=== PATIENT | female | born 1985 | race Caucasian/White ===

== ENCOUNTER 2018-11-19 17:58 | Emergency (ER) | payer OTHER ==
[~2018-11-19] VITALS: Ht 170.2 cm; Wt 125.6 kg
[2018-11-19 18:02] VITALS: BP 145/91
[2018-11-19] MEDS ORDERED: ONDANSETRON ODT 4 MG PO ONE (18:30)
[2018-11-19 18:35] LABS: ALBUMIN 3.5 g/dL (3.4-5.0); ANION GAP 5 mmol/L (5-15); CALCIUM 8.9 mg/dL (8.5-10.1); CHLORIDE 112 mmol/L (98-107)
[2018-11-19 19:12] LABS: BASOPHILS # (AUTO) 0.03 x10^3/uL (0-0.1); BASOPHILS % (AUTO) 0 % (0-1); EOSINOPHILS # (AUTO) 0.26 x10^3/uL (0-0.4); EOSINOPHILS % (AUTO) 3 % (1-7); LYMPHOCYTES % (AUTO) 27 % (22-44); MD NO; MEAN CORPUSCULAR HEMOGLOBIN 27.2 pg (27.0-34.8); MEAN CORPUSCULAR HGB CONC 33.4 g/dL (32.4-35.8); MEAN CORPUSCULAR VOLUME 81.6 fL (80-100); MEAN PLATELET VOLUME 11.1 fL (7.4-10.4); MONOCYTES % (AUTO) 8 % (2-9); NEUTROPHILS # (AUTO) 6.17 x10^3/uL (1.8-6.8); NEUTROPHILS % (AUTO) 62 % (42-75); PLATELET COUNT 250 x10^3/uL (130-400); RED BLOOD COUNT 5.26 x10^6/uL (3.82-5.3); RED CELL DISTRIBUTION WIDTH 14.5 % (9.6-15.2)
[2018-11-19 19:34] LABS: MICROSCOPIC INDICATED
[2018-11-19 19:36] LABS: CULTURE INDICATED? NO
[2018-11-19] MEDS ORDERED: ONDANSETRON ODT 4 MG ONE (19:47)
== END 2018-11-19 20:50 | disposition home or self-care (01) ==
LOC: ED 20:00
DX: R42 Dizziness and giddiness (principal); E86.0 Dehydration; R11.2 Nausea with vomiting, unspecified; M54.5 Low back pain
CPT/HCPCS: 36415; 80048; 81001; 82040; 84703; 85025; 99283; Q0162

== ENCOUNTER 2018-12-16 22:00 | Emergency (ER) | payer OTHER, MEDICAID ==
[~2018-12-16] VITALS: Ht 167.6 cm; Wt 125.0 kg
--- NOTE | 2018-12-16 22:27 | NUR ---
PT HERE FOR BILATERAL FLANK PAIN X 2 DAYS.
[2018-12-16 22:40] LABS: MICROSCOPIC NOT IND
[2018-12-16 22:45] LABS: CULTURE INDICATED? NO; HCG UR SG 1.032 (1.003-1.030)
[2018-12-16 22:57] VITALS: BP 151/86
[2018-12-16] MEDS ORDERED: HYDROcodone/APAP 5/325 TABLET ONE (22:58)
[2018-12-16] MEDS ORDERED: CYCLOBENZAPRINE 10 MG TABLET ONE (22:58)
[2018-12-16] MEDS ORDERED: IBUPROFEN 200 MG TABLET ONE (22:58)
[2018-12-16] MEDS ORDERED: CYCLOBENZAPRINE 10 MG TABLET PO ONE (23:00)
[2018-12-16] MEDS ORDERED: IBUPROFEN 800 MG TABLET PO ONE (23:00)
[2018-12-16] MEDS ORDERED: HYDROcodone/APAP 5/325 TABLET PO ONE (23:00)
--- NOTE | 2018-12-16 23:00 | NUR ---
PT MEDICATED PER EMAR.
== END 2018-12-17 00:18 | disposition home or self-care (01) ==
LOC: ED 22:42
DX: S39.012A Strain of muscle, fascia and tendon of lower back, initial encounter (principal); X58.XXXA Exposure to other specified factors, initial encounter; Y93.89 Activity, other specified; Y92.89 Other specified places as the place of occurrence of the external cause; Y99.8 Other external cause status
CPT/HCPCS: 72110; 81003; 81025; 99284

== ENCOUNTER 2019-05-20 16:54 | Emergency (ER) | payer MEDICAID, OTHER ==
[~2019-05-20] VITALS: Ht 170.2 cm; Wt 117.0 kg
--- NOTE | 2019-05-20 17:33 | NUR ---
THIS IS A 33YO FEMALE THAT COMES IN FOR VB LASTING 3WEEKS PT REPORTS NOT NEEDING PADS FOR THE BLEEDING JUST PRESENT WHEN SHE WIPES, PT DENIES NEW MEDICATION CHANGES REPORTS USING DEPO FOR LAST 7MONTHS. PT CONNECTED TO MONITORING. VSS. CALL LIGHT WITHIN REACH. UMER
[2019-05-20 18:26] LABS: BASOPHILS # (AUTO) 0.04 x10^3/uL (0-0.1); BASOPHILS % (AUTO) 0 % (0-1); EOSINOPHILS # (AUTO) 0.14 x10^3/uL (0-0.4); EOSINOPHILS % (AUTO) 1 % (1-7); LYMPHOCYTES # (AUTO) 2.52 x10^3/uL (1-3.4); LYMPHOCYTES % (AUTO) 24 % (22-44); MD NO; MEAN CORPUSCULAR HEMOGLOBIN 27.8 pg (27.0-34.8); MEAN CORPUSCULAR HGB CONC 32.9 g/dL (32.4-35.8); MEAN CORPUSCULAR VOLUME 84.4 fL (80-100); MONOCYTES # (AUTO) 0.73 x10^3/uL (0.2-0.8); MONOCYTES % (AUTO) 7 % (2-9); NEUTROPHILS # (AUTO) 7.21 x10^3/uL (1.8-6.8); NEUTROPHILS % (AUTO) 68 % (42-75); PLATELET COUNT 219 x10^3/uL (130-400); RED BLOOD COUNT 5.21 x10^6/uL (3.82-5.3); RED CELL DISTRIBUTION WIDTH 14.9 % (9.6-15.2)
[2019-05-20 18:33] LABS: ALBUMIN 3.3 g/dL (3.4-5.0); ANION GAP 6 mmol/L (5-15); CALCIUM 8.7 mg/dL (8.5-10.1); CHLORIDE 111 mmol/L (98-107); CREATININE 1.05 mg/dL (0.55-1.02)
--- NOTE | 2019-05-20 18:47 | NUR ---
PT TAKEN TO US
--- NOTE | 2019-05-20 18:55 | NUR ---
ALL RESULTS BACK AT THIS TIME, CHART UP FOR RECHECK
[2019-05-20 18:57] VITALS: BP 119/82
--- NOTE | 2019-05-20 18:58 | NUR ---
PT RESTING ON GURNEY. FRIEND AT BEDSIDE. VSS, CALL LIGHT WITHIN REACH.
== END 2019-05-20 19:28 | disposition home or self-care (01) ==
LOC: ED 19:15
DX: N92.4 Excessive bleeding in the premenopausal period (principal); N93.8 Other specified abnormal uterine and vaginal bleeding; N63.0 Unspecified lump in unspecified breast; F17.200 Nicotine dependence, unspecified, uncomplicated
CPT/HCPCS: 36415; 76830; 80048; 82040; 84702; 85025; 99284

== ENCOUNTER 2019-06-17 02:13 | Emergency (ER) | payer OTHER ==
[~2019-06-17] VITALS: Ht 167.6 cm; Wt 118.0 kg
[2019-06-17 02:16] VITALS: BP 127/97
[2019-06-17] MEDS ORDERED: HYDROcodone/APAP 5/325 TABLET ONE (02:46)
[2019-06-17] MEDS ORDERED: HYDROcodone/APAP 5/325 TABLET PO ONE (03:00)
--- NOTE | 2019-06-17 03:58 | NUR ---
Received report and assumed patient care. Introduced self to RN. Patient denies needs at the time. Imaging results back, patient has no break. Patient ankle wrapped by emergency room equipment technician.
== END 2019-06-17 04:38 | disposition home or self-care (01) ==
LOC: ED 02:43
DX: S93.401A Sprain of unspecified ligament of right ankle, initial encounter (principal); X50.1XXA Overexertion from prolonged static or awkward postures, initial encounter; Y93.01 Activity, walking, marching and hiking; Y92.410 Unspecified street and highway as the place of occurrence of the external cause; Y99.8 Other external cause status
CPT/HCPCS: 99283

== ENCOUNTER 2019-06-22 18:45 | Emergency (ER) | payer MEDICAID ==
[~2019-06-22] VITALS: Ht 167.6 cm; Wt 117.8 kg
--- NOTE | 2019-06-22 19:15 | NUR ---
Patient came in with productive cough and back pain. Patient states she has a history of bronchitis and pneumonia. Patient is a smoker. Patient speaks in full sentences. Skin PWD.
--- NOTE | 2019-06-22 19:23 | NUR ---
Patient also c/o headache. Back pain occurs while patient is coughing.
[2019-06-22 20:41] VITALS: BP 153/79
== END 2019-06-22 20:49 | disposition home or self-care (01) ==
LOC: ED 20:43
DX: J06.9 Acute upper respiratory infection, unspecified (principal); R56.9 Unspecified convulsions; F17.210 Nicotine dependence, cigarettes, uncomplicated
CPT/HCPCS: 71046; 93005; 99283

== ENCOUNTER 2020-03-10 20:20 | Emergency (ER) | payer MEDICAID ==
[~2020-03-10] VITALS: Ht 165.1 cm; Wt 116.0 kg
[2020-03-10 20:29] VITALS: BP 192/109
== END 2020-03-10 22:01 | disposition home or self-care (01) ==
LOC: ED 21:35
DX: B34.9 Viral infection, unspecified (principal); R50.9 Fever, unspecified; Z20.828 Contact with and (suspected) exposure to other viral communicable diseases; R07.9 Chest pain, unspecified; G40.909 Epilepsy, unspecified, not intractable, without status epilepticus; F17.200 Nicotine dependence, unspecified, uncomplicated
CPT/HCPCS: 36415; 71045; 87635; 99284

== ENCOUNTER 2020-04-10 20:10 | Emergency (ER) | payer MEDICAID ==
[~2020-04-10] VITALS: Ht 167.6 cm; Wt 117.0 kg
--- NOTE | 2020-04-10 20:21 | NUR ---
PT ATTEMPTING UA AT THIS TIME.
[2020-04-10] MEDS ORDERED: ONDANSETRON ODT 8 MG ONE (20:45)
[2020-04-10 20:52] LABS: MICROSCOPIC NOT IND
[2020-04-10] MEDS ORDERED: ONDANSETRON ODT 8 MG PO ONE (21:00)
[2020-04-10 21:28] LABS: BASOPHILS # (AUTO) 0.03 x10^3/uL (0-0.1); BASOPHILS % (AUTO) 0 % (0-1); EOSINOPHILS % (AUTO) 1 % (1-7); LYMPHOCYTES # (AUTO) 1.94 x10^3/uL (1-3.4); LYMPHOCYTES % (AUTO) 18 % (22-44); MD NO; MEAN CORPUSCULAR HEMOGLOBIN 27.2 pg (27.0-34.8); MEAN CORPUSCULAR HGB CONC 31.8 g/dL (32.4-35.8); MEAN CORPUSCULAR VOLUME 85.4 fL (80-100); MEAN PLATELET VOLUME 10.8 fL (7.4-10.4); MONOCYTES # (AUTO) 0.85 x10^3/uL (0.2-0.8); MONOCYTES % (AUTO) 8 % (2-9); NEUTROPHILS # (AUTO) 7.64 x10^3/uL (1.8-6.8); NEUTROPHILS % (AUTO) 72 % (42-75); PLATELET COUNT 218 x10^3/uL (130-400); RED BLOOD COUNT 4.93 x10^6/uL (3.82-5.3); RED CELL DISTRIBUTION WIDTH 14.4 % (9.6-15.2)
[2020-04-10 21:43] LABS: ALBUMIN 3.1 g/dL (3.4-5.0); ANION GAP 7 mmol/L (5-15); CALCIUM 8.8 mg/dL (8.5-10.1); CHLORIDE 107 mmol/L (98-107)
--- NOTE | 2020-04-10 22:04 | NUR ---
ALL RESULTS ARE BACK AT THIS TIME. CHART UP FOR RECHECK.
--- NOTE | 2020-04-10 22:30 | NUR ---
NEW ORDER FOR US. PT UPDATED. PT STATES NAUSEA IS GONE AFTER MEDS.
[2020-04-10 22:39] VITALS: BP 116/70
== END 2020-04-10 23:03 | disposition home or self-care (01) ==
LOC: ED 21:23
DX: O21.9 Vomiting of pregnancy, unspecified (principal); R19.7 Diarrhea, unspecified; F17.210 Nicotine dependence, cigarettes, uncomplicated; G40.909 Epilepsy, unspecified, not intractable, without status epilepticus; Z90.89 Acquired absence of other organs; Z90.49 Acquired absence of other specified parts of digestive tract; Z3A.01 Less than 8 weeks gestation of pregnancy
CPT/HCPCS: 36415; 76801; 80048; 81003; 82040; 84702; 85025; 99284; 99406; Q0162

== ENCOUNTER 2020-05-30 07:17 | Emergency (ER) | payer MEDICAID ==
[~2020-05-30] VITALS: Ht 167.6 cm; Wt 115.1 kg
--- NOTE | 2020-05-30 07:56 | NUR ---
PT CAME CO OF VB THAT "WAS THERE WHEN I WOKE UP THIS MORNING". PT STATES SHE IS 14 WEEKS PREGANT. THIS IS HER 3RD WITH THE OTHERS BEING TO TERM. PT IS RESTING IN [facility]. UA PROVIDED. BLANKET GIVEN.
[2020-05-30 08:07] LABS: MICROSCOPIC AUTO
[2020-05-30 08:20] LABS: BASOPHILS % (AUTO) 1 % (0-1); EOSINOPHILS % (AUTO) 1 % (1-7); LYMPHOCYTES % (AUTO) 25 % (22-44); MEAN CORPUSCULAR HEMOGLOBIN 27.4 pg (27.0-34.8); MEAN CORPUSCULAR HGB CONC 32.4 g/dL (32.4-35.8); MEAN PLATELET VOLUME 10.3 fL (7.4-10.4); MONOCYTES % (AUTO) 9 % (2-9); NEUTROPHILS % (AUTO) 64 % (42-75); PLATELET COUNT 192 x10^3/uL (130-400); RED BLOOD COUNT 4.74 x10^6/uL (3.82-5.3); RED CELL DISTRIBUTION WIDTH 14.4 % (9.6-15.2)
[2020-05-30 08:24] LABS: MD NO
[2020-05-30 08:33] LABS: ALANINE AMINOTRANSFERASE 13 U/L (12-78); ALBUMIN 2.6 g/dL (3.4-5.0); ANION GAP 6 mmol/L (5-15); CALCIUM 8.7 mg/dL (8.5-10.1); CHLORIDE 109 mmol/L (98-107); CREATININE 0.71 mg/dL (0.55-1.02)
[2020-05-30 08:50] LABS: ALKALINE PHOSPHATASE 96 U/L (45-117); BILIRUBIN,TOTAL 0.2 mg/dL (0.2-1.0); TOTAL PROTEIN 6.4 g/dL (6.4-8.2)
--- NOTE | 2020-05-30 09:19 | NUR ---
REC BS REPORT PT RESTING WAITING LAB REPORT
[2020-05-30 09:28] VITALS: BP 138/84
== END 2020-05-30 09:30 | disposition home or self-care (01) ==
LOC: ED 07:53
DX: O20.0 Threatened abortion (principal); Z3A.13 13 weeks gestation of pregnancy
CPT/HCPCS: 36415; 76801; 80053; 81001; 84702; 85025; 86901; 99284

== ENCOUNTER 2020-06-06 00:40 | Emergency (ER) | payer MEDICAID ==
[~2020-06-06] VITALS: Ht 167.6 cm; Wt 116.2 kg
--- NOTE | 2020-06-06 01:10 | NUR ---
THIS IS A 34 YO FEMALE THAT IS APPROX 14 WEEKS , WHO IS COMING IN WITH C/O VAGINAL BLEEDING AND PASSING CLOT TODAY. PATIENT HAD EPISODE OF HEAVY BRIGHT RED VAGINAL BLEEDING 2 WEEKS AGO, WHICH RESOLVED AND IS NOW LIGHTLY SPOTTING WITH "PINK BLOOD". PATIENT WAS AT WORK TODAY AND HAD LOWER QUADRANT CRAMPING AND PASSED LARGE CLOT. LAST ULTRASOUND WAS ON SUNDAY [facility], AND WAS NORMAL. UA COLLECTED AND SENT, GREGG MOURA IN ROOM FOR EVAL. UMER JIMENEZ.
[2020-06-06 01:34] LABS: BASOPHILS % (AUTO) 0 % (0-1); EOSINOPHILS % (AUTO) 1 % (1-7); LYMPHOCYTES % (AUTO) 20 % (22-44); MEAN CORPUSCULAR HEMOGLOBIN 27.4 pg (27.0-34.8); MEAN CORPUSCULAR HGB CONC 32.5 g/dL (32.4-35.8); MEAN PLATELET VOLUME 10.7 fL (7.4-10.4); MONOCYTES % (AUTO) 7 % (2-9); NEUTROPHILS % (AUTO) 71 % (42-75); PLATELET COUNT 199 x10^3/uL (130-400); RED BLOOD COUNT 4.89 x10^6/uL (3.82-5.3); RED CELL DISTRIBUTION WIDTH 14.2 % (9.6-15.2)
[2020-06-06 01:38] LABS: MICROSCOPIC NOT IND
[2020-06-06 01:40] LABS: ALANINE AMINOTRANSFERASE 16 U/L (12-78); ALBUMIN 2.8 g/dL (3.4-5.0); ANION GAP 7 mmol/L (5-15); CALCIUM 8.7 mg/dL (8.5-10.1); CHLORIDE 107 mmol/L (98-107); CREATININE 0.63 mg/dL (0.55-1.02)
[2020-06-06 01:57] LABS: ALKALINE PHOSPHATASE 111 U/L (45-117); BILIRUBIN,TOTAL 0.2 mg/dL (0.2-1.0); TOTAL PROTEIN 6.9 g/dL (6.4-8.2)
[2020-06-06 01:59] LABS: MD SCAN
--- NOTE | 2020-06-06 02:10 | NUR ---
Patient back from ultrasound
--- NOTE | 2020-06-06 02:45 | NUR ---
Patient/Caregiver given discharge instructions and they have confirmed that they understand the instructions. Patient ambulatory with steady gait.
[2020-06-06 03:03] VITALS: BP 123/72
== END 2020-06-06 03:04 | disposition home or self-care (01) ==
LOC: ED 01:59
DX: O20.0 Threatened abortion (principal); Z3A.14 14 weeks gestation of pregnancy; Z90.49 Acquired absence of other specified parts of digestive tract
CPT/HCPCS: 36415; 76805; 80053; 81003; 84702; 85025; 99284

== ENCOUNTER 2020-07-04 00:09 | Emergency (ER) | payer MEDICAID ==
[~2020-07-04] VITALS: Ht 170.2 cm; Wt 118.0 kg
[2020-07-04 00:22] VITALS: BP 138/72
== END 2020-07-04 02:04 | disposition home or self-care (01) ==
LOC: ED 01:30
DX: O26.892 Other specified pregnancy related conditions, second trimester (principal); G89.11 Acute pain due to trauma; R10.9 Unspecified abdominal pain; Z3A.18 18 weeks gestation of pregnancy; W01.0XXA Fall on same level from slipping, tripping and stumbling without subsequent striking against object, initial encounter; Y93.89 Activity, other specified; Y92.89 Other specified places as the place of occurrence of the external cause; Y99.0 Civilian activity done for income or pay
CPT/HCPCS: 76815; 99284